=== PATIENT | female | born 1995 | race Caucasian/White ===

== ENCOUNTER → 2024-05-15 08:27 | Outpatient (BNVA) | payer SELFPAY | PROVIDERS: Visit Provider Nurse Practitioner Women's Health | DX: Z87.59 Personal history of other complications of pregnancy, childbirth and the puerperium (principal); Z13.1 Encounter for screening for diabetes mellitus; N92.6 Irregular menstruation, unspecified; R30.0 Dysuria | CPT/HCPCS: 81025; 83036; 84315; 84439; 84443; 84702 ==

== ENCOUNTER → 2024-05-30 11:41 | Outpatient (BNVA) | payer MEDICAID, SELFPAY | PROVIDERS: Visit Provider Nurse Practitioner Women's Health | DX: Z36.87 Encounter for antenatal screening for uncertain dates (principal); Z3A.09 9 weeks gestation of pregnancy | CPT/HCPCS: 76801 ==

== ENCOUNTER → 2024-06-05 10:39 | Outpatient (BNVA) | payer MEDICAID, SELFPAY | PROVIDERS: Visit Provider Nurse Practitioner Women's Health | DX: Z34.90 Encounter for supervision of normal pregnancy, unspecified, unspecified trimester (principal); Z87.59 Personal history of other complications of pregnancy, childbirth and the puerperium | CPT/HCPCS: 80053; 80307; 84315; 85025; 86592; 86762; 86803; 86850; 86900; 87086; 87340; 87806 ==

== ENCOUNTER 2024-06-13 11:22 | Outpatient (CLI) | payer MEDICAID, SELFPAY ==
[2024-06-13 11:57] LABS: Urine Total Protein 7.4 mg/dL (0-150)
[2024-06-13 12:04] LABS: Total Volume, Urine 1100 mL; Urine Total Protein 24 Hour 81.4 mg/24hr (0-150)
== END 2024-06-13 11:23 | disposition home or self-care (01) ==
LOC: LAB 11:23
PROVIDERS: Visit Provider Nurse Practitioner Women's Health
DX: Z87.59 Personal history of other complications of pregnancy, childbirth and the puerperium (principal)
CPT/HCPCS: 84156

== ENCOUNTER → 2024-06-26 13:05 | Outpatient (BNVA) | payer MEDICAID, SELFPAY | PROVIDERS: Visit Provider Obstetrics & Gynecology | DX: Z34.80 Encounter for supervision of other normal pregnancy, unspecified trimester (principal) | CPT/HCPCS: 84315; 87491; 87591; 87624 ==

== ENCOUNTER → 2024-08-14 14:04 | Outpatient (BNVA) | payer MEDICAID, SELFPAY | PROVIDERS: Visit Provider Obstetrics & Gynecology | DX: Z34.92 Encounter for supervision of normal pregnancy, unspecified, second trimester (principal) | CPT/HCPCS: 76805 ==